=== PATIENT | male | born 1970 | race Caucasian/White ===

== ENCOUNTER 2020-07-30 07:25 | Outpatient (CLI) | payer BC, SELFPAY ==
--- NOTE | ~2020-07-30 | MR_ITS ---
EXAMINATION: MR brain/brain stem wo/w con DATE: 07/30/2020 09:42 INDICATION: Papilledema TECHNIQUE: Magnetic resonance imaging (MRI) of the brain and brainstem was performed without and with 20 cc MultiHance intravenous contrast. Sequences included sagittal and axial T1-weighted SE, axial d iffusion-weighted FS SE, axial T2*-weighted GRE, axial T2-weighted FLAIR Propeller, and axial T2-weig hted Propeller. Apparent diffusion coefficient (ADC) maps were created. COMPARISON: None. FINDINGS: Normal brain parenchymal volume. No acute intracranial hemorrhage or infarction. No ventric ulomegaly or midline shift. There are scattered mild periventricular and subcortical white matter danitza nges, most likely related to small vessel ischemic disease (microangiopathy). Midline sagittal images demonstrate a normal corpus callosum and craniovertebral junction. There is mild mucosal thickening of the paranasal sinuses. Orbits are symmetric without disconjugate gaze. No abnormal contrast enhanc ement. Structures of the posterior fossa including 7/8th cranial nerve complexes are normal IMPRESSION: 1. No acute intracranial abnormality. 2: Chronic age-related findings. Reviewed, dictated and finalized at location B.
--- NOTE | ~2020-07-30 | MR_ITS ---
EXAMINATION: MR orbits face neck wo/w con DATE: 07/30/2020 09:44 INDICATION: Papilledema. Lower left-sided vision loss. TECHNIQUE: Magnetic resonance imaging (MRI) of the orbits was performed without and with 20 mL MultiH ance intravenous contrast. Sequences of the orbits included coronal and axial T2-weighted FS FSE and T1-weighted FSE. Postcontrast sequences included axial and coronal T1-weighted FS FSE. COMPARISON: Brain MRI 07/30/2020 FINDINGS: There is mild mucosal thickening in the paranasal sinuses. The extraocular muscles and opti c nerves are normal. The ocular globes are normal. There is no abnormal orbital mass. IMPRESSION: 1. Normal orbits. Reviewed, dictated and finalized at location A. IMPRESSION: 1. Normal orbits.
[2020-07-30 08:31] LABS: Estimated Glomerular Filt Rate > 60
== END 2020-07-30 07:26 | disposition home or self-care (01) ==
PROVIDERS: PCP Family Medicine; Visit Provider Family Medicine
DX: H47.10 Unspecified papilledema (principal); H54.60 Unqualified visual loss, one eye, unspecified
CPT/HCPCS: 70543; 70553; A9577

== ENCOUNTER 2021-07-01 13:08 | Outpatient (CLI) | payer BC, SELFPAY ==
--- NOTE | ~2021-07-01 | XR_ITS ---
EXAM: XR cervical spine min 6V DATE: 07/01/2021 13:27 HISTORY: PAIN, NUMBNESS, TINGLING OF LEFT ARM-NO KNOWN INJURY . COMPARISON: None available. FINDINGS: Craniocervical association and atlantoaxial joint are normal. No prevertebral soft tissue swelling. Cervical spine straightening as can occur with positioning or spasm. Vertebral bodies are a ligned. Vertebral body heights are maintained. Mild disc space narrowing at C3-4. Mild bilateral C3-4 neural foraminal narrowing caused by uncovertebral joint hypertrophy. Normal facets and posterior el ements. IMPRESSION: Mild degenerative disc disease at C3-4. Mild bilateral C3-4 neural foraminal narrowing. Reviewed, dictated and finalized at location K.
== END 2021-07-01 13:09 | disposition home or self-care (01) ==
PROVIDERS: PCP Family Medicine; Visit Provider Family Medicine
DX: R20.2 Paresthesia of skin (principal); M50.320 Other cervical disc degeneration, mid-cervical region, unspecified level
CPT/HCPCS: 72052

== ENCOUNTER 2021-08-29 09:19 | Outpatient (CLI) | payer BC, SELFPAY ==
--- NOTE | 2021-08-29 11:30 | NEURO_ITS ---
Impression: # Complains of pain in upper extremities proximally, left more than right. # No Carpal Tunnel Syndrome or ulnar neuropathy. # Asymmetrical F-waves. # Needle/EMG exam revealed neurogenic changes in proximal muscles, left more than right, but no active neurogenic changes in proximal muscles. # Clinical correlation recommended; C-spine MRI recommended as well as brachial plexas. Nerve Conduction Studies Anti Sensory Summary Table Stim Site NR Peak (ms) P-T Amp (?V) Site1 Site2 Delta-P (ms) Dist (cm) Ramakrishna (m/s) Left Median Anti Sensory (2-3nd Digit) Wrist 2.5 60.8 Wrist 2-3nd Digit 2.5 14.0 56 Wrist 2.6 30.3 Wrist 2-3nd Digit 2.5 14.0 56 Right Median Anti Sensory (2-3nd Digit) Wrist 2.7 24.6 Wrist 2-3nd Digit 2.7 14.0 52 Wrist 2.6 39.4 Wrist 2-3nd Digit 2.7 14.0 52 Left Radial Anti Sensory (Base 1st Digit) Wrist 2.0 21.2 Wrist Base 1st Digit 2.0 0.0 Right Radial Anti Sensory (Base 1st Digit) Wrist 2.8 16.6 Wrist Base 1st Digit 2.8 0.0 Left Ulnar Anti Sensory (5th Digit) Wrist 2.8 42.9 Wrist 5th Digit 2.8 14.0 50 Right Ulnar Anti Sensory (5th Digit) Wrist 2.5 49.3 Wrist 5th Digit 2.5 14.0 56 Motor Summary Table Stim Site NR Onset (ms) O-P Amp (mV) Site1 Site2 Delta-0 (ms) Dist (cm) Ramakrishna (m/s) Left Median Motor (Abd Poll Brev) Wrist 3.1 3.2 Elbow Wrist 5.9 31.0 53 Elbow 9.0 2.3 Right Median Motor (Abd Poll Brev) Wrist 2.8 6.2 Elbow Wrist 5.4 31.0 57 Elbow 8.2 4.8 Left Ulnar Motor (Abd Dig Minimi) Wrist 2.0 5.2 A Elbow Wrist 5.4 31.0 57 A Elbow 7.4 4.4 Right Ulnar Motor (Abd Dig Minimi) Wrist 2.9 5.4 A Elbow Wrist 5.8 33.0 57 A Elbow 8.7 3.6 F Wave Studies NR F-Lat (ms) L-R F-Lat (ms) Left Median (Mrkrs) (Abd Poll Brev) 30.47 1.23 Right Median (Mrkrs) (Abd Poll Brev) 29.24 1.23 Left Ulnar (Mrkrs) (Abd Dig Min) 28.53 0.29 Right Ulnar (Mrkrs) (Abd Dig Min) 28.24 0.29 EMG Side Muscle Nerve Root Ins Act Fibs Amp Dur Recrt Comment Right 1stDorInt Ulnar C8-T1 Nml Nml Nml Nml Nml Right Ext Indicis Radial (Post Int) C7-8 Nml Nml Nml Nml Nml Right Ext Digitorum Radial (Post Int) C7-8 Nml Nml Nml Nml Nml Right BrachioRad Radial C5-6 Nml Nml Nml Nml Nml Right PronatorTeres Median C6-7 Nml Nml Nml Nml Nml Right Abd Poll Brev Median C8-T1 Nml Nml Nml Nml Nml Left 1stDorInt Ulnar C8-T1 Nml Nml Nml Nml Nml Left Ext Indicis Radial (Post Int) C7-8 Nml Nml Nml Nml Nml Left Ext Digitorum Radial (Post Int) C7-8 Nml Nml Nml Nml Nml Left BrachioRad Radial C5-6 Nml Nml Nml >12ms Reduced Left PronatorTeres Median C6-7 Nml Nml Nml Nml Nml Left Abd Poll Brev Median C8-T1 Nml Nml Nml Nml Nml Right Biceps Musculocut C5-6 Nml Nml Nml >12ms Reduced Right Triceps Radial C6-7-8 Nml Nml Nml Nml Nml Right Deltoid Axillary C5-6 Nml Nml Nml >12ms Reduced Left Biceps Musculocut C5-6 Nml Nml Nml >12ms Reduced Left Triceps Radial C6-7-8 Nml Nml Nml >12ms Reduced Left Deltoid Axillary C5-6 Nml Nml Nml >12ms Reduced MTDD
== END 2021-08-29 09:20 | disposition home or self-care (01) ==
LOC: ANHNEURO 09:20
PROVIDERS: PCP Family Medicine; Visit Provider Family Medicine
DX: R20.2 Paresthesia of skin (principal)
CPT/HCPCS: 95886; 95911

== ENCOUNTER 2021-09-10 07:07 | Outpatient (CLI) | payer BC, SELFPAY ==
--- NOTE | ~2021-09-10 | MR_ITS ---
EXAMINATION: MR cervical spine wo con DATE: 09/10/2021 07:45 INDICATION: Cervical radiculopathy. TECHNIQUE: Magnetic resonance imaging (MRI) of the cervical spine was performed without intravenous c ontrast. Sequences included sagittal T2-weighted FSE, sagittal T2-weighted FS FSE, sagittal T1-weight ed FSE, axial MERGE, and axial T2-weighted FSE. COMPARISON: Cervical spine radiographs 07/01/2021 FINDINGS: There is 8 degrees dextrocurvature of cervicothoracic spine. Vertebral body heights are nor mal. Intervertebral disc heights are normal. The spinal cord signal intensity is normal. The followin g disc levels are specifically discussed: C2-C3: The disc does not extend beyond the endplate margin. There is no uncovertebral joint osteoarth ritis. There is no facet joint osteoarthritis. There is no neural foraminal stenosis. There is no mary tral canal stenosis. C3-C4: The disc does not extend beyond the endplate margins. There is mild bilateral uncovertebral rena int osteoarthritis. There is mild bilateral facet joint osteoarthritis. There is no neural foraminal stenosis. There is no central canal stenosis. C4-C5: There is a central protrusion. There is mild right uncovertebral joint osteoarthritis. There i s no facet joint osteoarthritis. There is no neural foraminal stenosis. There is mild central canal s tenosis. C5-C6: There is a central protrusion. There is no uncovertebral joint osteoarthritis. There is no fac et joint osteoarthritis. There is no neural foraminal stenosis. There is no central canal stenosis. C6-C7: The disc does not extend beyond the endplate margin. There is mild left uncovertebral joint os teoarthritis. There is no facet joint osteoarthritis. There is no neural foraminal stenosis. There is no central canal stenosis. C7-T1: The disc does not extend beyond the endplate margin. There is no uncovertebral joint osteoarth ritis. There is mild bilateral facet joint osteoarthritis. There is no neural foraminal stenosis. The re is no central canal stenosis. IMPRESSION: 1. Mild cervical spondylosis. Reviewed, dictated and finalized at location A.
== END 2021-09-10 07:08 | disposition home or self-care (01) ==
PROVIDERS: PCP Family Medicine; Visit Provider Family Medicine
DX: M47.22 Other spondylosis with radiculopathy, cervical region (principal)
CPT/HCPCS: 72141

== ENCOUNTER 2021-10-01 12:57 | Outpatient (CLI) | payer BC, SELFPAY ==
--- NOTE | ~2021-10-01 | XR_ITS ---
EXAMINATION: XR shoulder LT min 2V INDICATION: Adhesive capsulitis of the left shoulder TECHNIQUE: Four views of the left shoulder are obtained on five radiographs. COMPARISON: None FINDINGS: Normal alignment. No fracture. There is mild osteoarthritis of the glenohumeral and acromio clavicular joints. Soft tissues are unremarkable. IMPRESSION: 1. Osteoarthritis without acute osseous abnormality. Reviewed, dictated and finalized at location B.
== END 2021-10-01 12:58 | disposition home or self-care (01) ==
PROVIDERS: PCP Family Medicine; Visit Provider Physical Medicine & Rehabilitation
DX: M75.02 Adhesive capsulitis of left shoulder (principal); M19.012 Primary osteoarthritis, left shoulder
CPT/HCPCS: 73030

== ENCOUNTER 2023-05-25 03:08 | Day surgery (SDC) | payer BC, SELFPAY ==
[2023-05-11 09:31] VITALS: BMI 30.8
[2023-05-25 09:37] VITALS: BP 122/79; PULSE 100; RESP 18; TEMP 36.2; O2SAT 98
--- NOTE | 2023-05-25 09:43 | WPDANESEPPF ---
Anes - Initial Pre Proc Eval Procedure: Operation Date: 05/25/23 10:30 Proposed Procedures p Screening Colonoscopy - Issac Cooper MD Date/Time: 05/25/23 09:43 Surgeon: Issac Cooper MD Pre Op Diagnosis: neoplasm screening Patient Data Age: 52 Gender: M Height: 1.88 m Weight: 107.3 kg Last Vital Signs Temp 97.1 F L 05/25/23 09:37 Pulse 100 05/25/23 09:37 Resp 18 05/25/23 09:37 BP 122/79 05/25/23 09:37 Pulse Ox 98 05/25/23 09:37 O2 Del Method Room Air 05/25/23 09:37 Allergies Allergy/AdvReac Type Severity Reaction Status Date / Time No Known Allergies Allergy Verified 05/25/23 09:34 Home Medications Medication Instructions Recorded Confirmed Type rosuvastatin 10 mg tablet 10 mg PO DAILY #90 tabs 03/16/23 05/25/23 Rx metformin 1,000 mg tablet 1,000 mg PO BID #180 tabs 05/04/23 05/25/23 Rx empagliflozin 25 mg tablet 25 mg PO DAILY #90 tabs 05/11/23 05/25/23 Rx (Jardiance) glimepiride 1 mg tablet See Rx Instructions .Route 05/11/23 05/25/23 Rx .COMPLEX #90 tabs Patient hx anesthesia problems: none Family hx anesthesia problems: none Results Review: All pre-operative results and documents have been reviewed as part of the pre-operative evaluation. [facility] Past Medical History Medical History Hyperlipidemia, unspecified NAION (non-arteritic anterior ischemic optic neuropathy), left eye Papilledema Type 2 diabetes mellitus with moderate nonproliferative diabetic retinopathy without macular edema, bilateral Unilateral visual loss Social History Social History (Updated 03/16/23 @ 11:15 by Rekha Lay MA) Smoking status: Never smoker Second hand tobacco smoke exposure: No Alcohol intake: unknown Substance use: never Substance use type: does not use Do You Feel Safe in your Home?: Yes Lack of Transportation: No Lack of Food: Never True Current Housing: I Have Housing Concerned About Future Housing: No Difficulty Paying Gas/Electric Bills: No Difficulty Paying for Meds: No Currently Unemployed: No Education: High School Diploma/GED Difficulty w/ Childcare or Family Care: No Living arrangements: alone Occupation/Education: occupation Gender identity (if verbalized by the patient): Male Sexual Orientation (if Verbalized by the Patient): Straight or Heterosexual Spiritual care concerns: No Anes - Eval Final PreProcedure Day of Procedure 05/25/23 09:43 Patient weight: obese Heart: regular rate and rhythm Lungs: clear to auscultation Airway: Mallampati scale class II Neurological: alert and oriented Last oral intake: >/= 8 hours ASA classification: II Emergent: no Anesthetic plan: proceed Anesthesia type and monitoring: general GIVS and standard monitoring Results Review: All pre-operative results and documents have been reviewed as part of the pre-operative evaluation. Informed Consent: The patient's anesthetic plan and its attendant risks and benefits were discussed with the patient/family/POA. Questions were solicited and answers provided to the satisfaction of the patient/family/POA.
[2023-05-25] MEDS: LACTATED RINGERS 1,000 ML 150 ML IV CONT (09:52)
[2023-05-25 09:54] LABS: Glucose Point of Care 167 mg/dl (65-105)
--- NOTE | 2023-05-25 10:22 | PM.HPGS ---
History of Present Illness History of Present Illness Consent: Risks, benefits, and alternatives have been discussed and questions answered. Patient agrees to proceed with procedure. Chief complaint: neoplasm screening Narrative: Sanchez Oconnell is a 52 year old male here for first screening colonoscopy Review of Systems Review of Systems: All systems reviewed & are unremarkable except as noted in HPI and below PMFSH Past Medical History Medical History (Updated 05/25/23 @ 10:22 by Issac Cooper MD) Colon cancer screening Hyperlipidemia, unspecified NAION (non-arteritic anterior ischemic optic neuropathy), left eye Papilledema Type 2 diabetes mellitus with moderate nonproliferative diabetic retinopathy without macular edema, bilateral Unilateral visual loss Social History Social History (Updated 03/16/23 @ 11:15 by Rekha Lay MA) Smoking status: Never smoker Second hand tobacco smoke exposure: No Alcohol intake: unknown Substance use: never Substance use type: does not use Do You Feel Safe in your Home?: Yes Lack of Transportation: No Lack of Food: Never True Current Housing: I Have Housing Concerned About Future Housing: No Difficulty Paying Gas/Electric Bills: No Difficulty Paying for Meds: No Currently Unemployed: No Education: High School Diploma/GED Difficulty w/ Childcare or Family Care: No Living arrangements: alone Occupation/Education: occupation Gender identity (if verbalized by the patient): Male Sexual Orientation (if Verbalized by the Patient): Straight or Heterosexual Spiritual care concerns: No Meds Home Medications and Allergies Home Medications Medication Instructions Recorded Confirmed Type rosuvastatin 10 mg tablet 10 mg PO DAILY #90 tabs 03/16/23 05/25/23 Rx metformin 1,000 mg tablet 1,000 mg PO BID #180 tabs 05/04/23 05/25/23 Rx empagliflozin 25 mg tablet 25 mg PO DAILY #90 tabs 05/11/23 05/25/23 Rx (Jardiance) glimepiride 1 mg tablet See Rx Instructions .Route 05/11/23 05/25/23 Rx .COMPLEX #90 tabs Allergies Allergy/AdvReac Type Severity Reaction Status Date / Time No Known Allergies Allergy Verified 05/25/23 09:34 Vital Signs Vital Signs - 24 hr 05/25/23 09:37 Temperature 97.1 F L Pulse Rate 100 Respiratory Rate 18 Blood Pressure 122/79 Pulse Oximetry 98 Oxygen Delivery Room Air Exam Const: General: comfortable and no acute distress HENMT: Face/Nose/Sinus: Normal nares present Eyes: General: appearance normal, both eyes and all related structures Neck: Neck: no JVD Resp: Auscultation: clear to auscultation bilaterally Cardio: Rate: regular rate Rhythm: regular rhythm GI: Inspection: non-distended GI Palp: Yes Soft to palpation Skin: General skin exam: normal color Neuro: General: gait normal Speech: normal speech Extrem: General: normal to inspection Psych: Mental Status: mental status grossly normal Assessment and Plan Assessment and plan (1) Colon cancer screening: Code(s): Z12.11 - Encounter for screening for malignant neoplasm of colon Status: Acute Assessment and Plan: colonoscopy
[2023-05-25 10:45] VITALS: BP 98/60; PULSE 100; RESP 19; O2SAT 97
[2023-05-25 10:55] VITALS: BP 102/65; PULSE 97; RESP 19; O2SAT 97
[2023-05-25 11:05] VITALS: BP 102/65; PULSE 90; RESP 18; O2SAT 98
== END 2023-05-25 11:08 | disposition home or self-care (01) ==
PROVIDERS: PCP Family Medicine; Visit Provider Internal Medicine Gastroenterology
PROC: 0DJD8ZZ Inspection of Lower Intestinal Tract, Via Natural or Artificial Opening Endoscopic (ICD-10-PCS; CPT 45378; principal; 2023-05-25 10:30)
DX: Z12.11 Encounter for screening for malignant neoplasm of colon (principal); D12.3 Benign neoplasm of transverse colon; D12.5 Benign neoplasm of sigmoid colon; D12.4 Benign neoplasm of descending colon; K64.8 Other hemorrhoids; K57.30 Diverticulosis of large intestine without perforation or abscess without bleeding; E78.5 Hyperlipidemia, unspecified; E11.3313 Type 2 diabetes mellitus with moderate nonproliferative diabetic retinopathy with macular edema, bilateral; E66.9 Obesity, unspecified; Z68.30 Body mass index [BMI] 30.0-30.9, adult; Z79.84 Long term (current) use of oral hypoglycemic drugs
CPT/HCPCS: 45385; 82948; 88305; J2704; J7120

== ENCOUNTER 2023-10-27 12:17 | Emergency (ER) | payer BC, SELFPAY ==
[2023-10-27 12:29] VITALS: BP 141/79; PULSE 95; RESP 16; TEMP 36.7; O2SAT 99
--- NOTE | 2023-10-27 12:31 | ED.DIZZY ---
HPI - Dizziness General Chief Complaint: Dizziness Stated Complaint: Dizziness Time Seen by Provider: 10/27/23 12:35 Source: patient Mode of arrival: ambulatory Limitations: no limitations History of Present Illness HPI Narrative: Sanchez is a 52-year-old male patient presenting to the clinic today with complaints of dizziness, headache, and nausea since yesterday afternoon. He reports that he stood up after eating lunch yesterday and felt dizzy-off balance/unsteady steady on his feet. States that the dizziness seems to be worse with movement of his head and when changing positions. History of diabetes. Related Data Allergies Allergy/AdvReac Type Severity Reaction Status Date / Time No Known Allergies Allergy Verified 10/27/23 12:23 Review of Systems Review of Systems: Pertinent positives per HPI. Patient denies any fever, chills, rash, visual changes, cough, runny nose, sore throat, shortness of breath, chest pain, palpitations, vomiting, diarrhea, constipation, abdominal pain, or any urinary issues. PMFSH Past Medical History Medical History (Updated 10/27/23 @ 13:43 by Jose F Miguel APRN) Colon cancer screening Hyperlipidemia, unspecified NAION (non-arteritic anterior ischemic optic neuropathy), left eye Papilledema Type 2 diabetes mellitus with moderate nonproliferative diabetic retinopathy without macular edema, bilateral Unilateral visual loss Social History Social History Smoking status: Never smoker Second hand tobacco smoke exposure: No Alcohol intake: unknown Substance use: never Substance use type: does not use Do You Feel Safe in your Home?: Yes Lack of Transportation: No Lack of Food: Never True Current Housing: I Have Housing Concerned About Future Housing: No Difficulty Paying Gas/Electric Bills: No Difficulty Paying for Meds: No Currently Unemployed: No Education: High School Diploma/GED Difficulty w/ Childcare or Family Care: No Living arrangements: alone Occupation/Education: occupation Gender identity (if verbalized by the patient): Male Sexual Orientation (if Verbalized by the Patient): Straight or Heterosexual Spiritual care concerns: No Comments At the time of my signature, I reviewed and agree with the nursing past medical, surgical, social, and family history. There is no relevant family history pertinent to the patient complaint. Exam Narrative: General: Well-developed, well nourished, in no apparent distress Head: Normocephalic, atraumatic Eyes: Pupils equally round and reactive to light bilaterally, EOM intact, sclera and conjunctive clear, no discharge, lids normal Ears: TMs intact and clear, ear canals clear, no drainage, grossly hearing normal. Nose: Nares patent, no discharge, no inflammation, no sinus tenderness. Mouth: Oropharynx without lesions or masses, good dentition, MMM. Tongue midline, even rise and fall of uvula Neck: Supple, trachea midline, no enlargement of anterior or posterior cervical nodes, no thyroid masses or goiter palpable. Cardio: Regular rate and rhythm, s1 and s2 normal, no murmur appreciated. Resp: Clear to auscultation bilaterally anteriorly and posteriorly, no rhonchi, rales, wheezing or rubs Musculoskeletal: No deformity, non-tender to palpation, grossly normal range of motion, muscle strength strong and equal, peripheral pulse strong, no edema, no cyanosis, normal gait and station Neuro: Alert and oriented x4 with normal speech, no focal deficits, cranial nerves I through XII intact, muscle strength 5 out of 5, sensation intact bilaterally, mild swaying with Romberg testing Course Course Emergency Course: Portions of this record may have been created with voice recognition software. Level of Care: Express Care Visit Vital Signs Vital signs: Vital Signs Temperature 36.7 C 10/27/23 12:29 Pulse Rate 95 10/27/23 12:29 Re
--- NOTE | 2023-10-27 12:44 | ECG_ITS ---
Test Date: 2023-10-27 12:57:14 Measurements Intervals [place] Rate: 88 P: 57 CO: 156 QRS: 53 QRSD: 86 T: 47 QT: 349 QTc: 424 Interpretive Statements SINUS RHYTHM NORMAL ECG No previous ECG available for comparison Electronically Signed On 10-27-2023 12:57:49 CDT by Huan López D.O.
[2023-10-27 12:46] LABS: Glucose Point of Care 211 mg/dl (65-105)
[2023-10-27 12:53] LABS: EDUAAPPEAR Clear; EDUABILI 1+ (Negative); EDUABLOOD Negative (Negative); EDUACOLOR1 Yellow; EDUAGLUCOSE 2+ (Negative); EDUAKETONE 3+ (Negative); EDUALEUKO Negative (Negative); EDUANITRATE Negative (Negative); EDUAPROTEIN 1+ (Negative); EDUAUROBILI 0.2
[2023-10-27 12:56] VITALS: BP 140/78; PULSE 86
[2023-10-27 12:57] VITALS: BP 123/77; PULSE 112
[2023-10-27 13:00] VITALS: BP 127/78; PULSE 102
== END 2023-10-27 13:22 | disposition short-term general hospital (02) ==
PROVIDERS: Emergency Provider Nurse Practitioner Family; PCP Family Medicine
DX: R42 Dizziness and giddiness (principal); R51.9 Headache, unspecified; R11.0 Nausea; R82.4 Acetonuria; R80.9 Proteinuria, unspecified; R81 Glycosuria; I95.1 Orthostatic hypotension; E78.5 Hyperlipidemia, unspecified; E11.3393 Type 2 diabetes mellitus with moderate nonproliferative diabetic retinopathy without macular edema, bilateral
CPT/HCPCS: 81003; 82948; 93005; 99213; G0463

== ENCOUNTER 2023-10-27 13:50 | Emergency (ER) | payer BC, SELFPAY ==
--- NOTE | ~2023-10-27 | CT_ITS ---
EXAMINATION: CT brain wo con DATE: 10/27/2023 14:34 INDICATION: Dizziness. Headache. TECHNIQUE: Computed tomography (CT) of the head was performed without intravenous contrast. The mA wa s adjusted according to patient size. Iterative reconstruction technique was employed. The dose-lengt h product was 681.00 mGy-cm. COMPARISON: Brain MRI 07/30/2020 FINDINGS: There is no intracranial hemorrhage, acute infarction, or abnormal intracranial mass lesion . The ventricles are normal in size. There is mucosal thickening in the paranasal sinuses. The orbits are normal. The mastoid air cells are normal. IMPRESSION: 1. Normal brain. Reviewed, dictated and finalized at location A. IMPRESSION: 1. Normal brain.
--- NOTE | ~2023-10-27 | XR_ITS ---
EXAMINATION: XR chest 2V DATE: 10/27/2023 14:38 INDICATION: Dizziness with nausea and headache TECHNIQUE: PA and lateral views of the chest were obtained. COMPARISON: None FINDINGS: The lungs are clear with no focal airspace opacities, pulmonary edema, pleural effusion or pneumothor ax. The cardiomediastinal silhouette is normal. Mild thoracic spondylosis. IMPRESSION: 1. No acute cardiopulmonary disease. Reviewed, dictated and finalized at location B.
[2023-10-27 13:51] VITALS: BP 138/86; PULSE 98; RESP 20; TEMP 36.4; O2SAT 98
[2023-10-27 13:58] LABS: Glucose Point of Care 196 mg/dl (65-105)
--- NOTE | 2023-10-27 14:08 | ED.DIZZY ---
HPI - Dizziness General Chief Complaint: Dizziness Stated Complaint: dizzeness Time Seen by Provider: 10/27/23 14:06 Source: patient Mode of arrival: ambulatory Limitations: no limitations History of Present Illness HPI Narrative: this is a 52-year-old male with PMH of T2 dm who presents to the ED for chief complaint of Dizziness over the past couple of days. Reports it is specifically worse when standing up from seated position. Vitals are normal. Exam is benign overall. No focal neurologic deficit. CT brain non con is without acute findings. Chest x-ray is normal. Lab work shows normal CBC overall. CMP does show elevated glucose of 190 and slightly low bicarb was slightly elevated anion gap. VBG use ordered to rule out a glycemic DKA and the pH is normal. Patient was given fluids and meclizine. largely asymptomatic at this point. Low suspicion for central cause of vertigo. Much more consistent with a peripheral vertigo or orthostatic hypotension. He was able to ambulate about the department without assistance. Pt will be discharged in stable condition. Return precautions given and supportive measures discussed. Pt is understanding and agreeable with plan for discharge and follow-up with PCP. Related Data Allergies Allergy/AdvReac Type Severity Reaction Status Date / Time No Known Allergies Allergy Verified 10/27/23 12:23 [facility] Past Medical History Medical History (Updated 10/27/23 @ 16:49 by Carlos Ruby PA-C) Colon cancer screening Hyperlipidemia, unspecified NAION (non-arteritic anterior ischemic optic neuropathy), left eye Papilledema Type 2 diabetes mellitus with moderate nonproliferative diabetic retinopathy without macular edema, bilateral Unilateral visual loss Social History Social History Smoking status: Never smoker Second hand tobacco smoke exposure: No Alcohol intake: unknown Substance use: never Substance use type: does not use Do You Feel Safe in your Home?: Yes Lack of Transportation: No Lack of Food: Never True Current Housing: I Have Housing Concerned About Future Housing: No Difficulty Paying Gas/Electric Bills: No Difficulty Paying for Meds: No Currently Unemployed: No Education: High School Diploma/GED Difficulty w/ Childcare or Family Care: No Living arrangements: alone Occupation/Education: occupation Gender identity (if verbalized by the patient): Male Sexual Orientation (if Verbalized by the Patient): Straight or Heterosexual Spiritual care concerns: No Course Vital Signs Vital signs: Vital Signs Temperature 97.5 F L 10/27/23 13:51 Pulse Rate 98 10/27/23 13:51 Respiratory Rate 20 10/27/23 13:51 Blood Pressure 138/86 10/27/23 13:51 Pulse Oximetry 98 10/27/23 13:51 Oxygen Delivery Room Air 10/27/23 13:51 Temperature 97.5 F L 10/27/23 13:51 Pulse Rate 95 10/27/23 17:22 Respiratory Rate 16 10/27/23 17:22 Blood Pressure 116/65 10/27/23 17:22 Pulse Oximetry 99 10/27/23 17:22 Oxygen Delivery Room Air 10/27/23 13:51 MDM - Dizziness Lab Data 10/27/23 14:22 10/27/23 14:22 Labs: Lab Results 10/27/23 10/27/23 Range/Units 13:55 14:22 WBC 11.5 H (4.5-10.0) K/mm3 RBC 5.62 (4.6-6.20) M/mm3 Hgb 16.4 (14.0-18.0) g/dL Hct 50.1 (42.0-52.0) % MCV 89.1 (80-100) fl MCH 29.2 (26-34) pg MCHC 32.7 (32-36) g/dl RDW 12.3 (11.5-14.5) % Plt Count 338 (150-375) k/mm3 MPV 10.0 (7.4-10.4) fl Immature Gran % (Auto) 1.0 H (0-0.5) % Neut % (Auto) 76.1 H (45.5-73.1) % Lymph % (Auto) 17.5 L (18.3-44.2) % [place] % (Auto) 4.2 (2.6-8.5) % Eos % (Auto) 0.4 (0-4.4) % Baso % (Auto) 0.8 (0.2-1.2) % Lymph # (Auto) 2.01 (0.9-3.2) K/mm3 [place] # (Auto) 0.5 (0.1-0.6) K/mm3 Eos # (Auto) 0.1 (0-0.3) K/mm3 Baso # (Auto) 0.1 (0.0-0.1) K/mm3 Abs Immat Gran
--- NOTE | 2023-10-27 14:09 | ECG_ITS ---
Test Date: 2023-10-27 14:13:13 Measurements Intervals [place] Rate: 94 P: 50 RI: 157 QRS: 38 QRSD: 77 T: 33 QT: 339 QTc: 425 Interpretive Statements SINUS RHYTHM EARLY PRECORDIAL R/S TRANSITION BASELINE ARTIFACT- I, III, AVL BORDERLINE ECG Compared to ECG 10/27/2023 12:57:14 No significant changes Electronically Signed On 10-27-2023 14:15:27 CDT by Huan López D.O.
[2023-10-27 14:16] VITALS: BP 130/92; BP 134/81; PULSE 89; PULSE 95
[2023-10-27 14:17] VITALS: BP 127/89; PULSE 110
[2023-10-27 14:20] VITALS: PULSE 94
[2023-10-27 14:28] LABS: Basophils Absolute Auto 0.1 K/mm3 (0.0-0.1); Basophils Percent Auto 0.8 % (0.2-1.2); Eosinophils Absolute Auto 0.1 K/mm3 (0-0.3); Eosinophils Percent Auto 0.4 % (0-4.4); Hematocrit 50.1 % (42.0-52.0); Hemoglobin 16.4 g/dL (14.0-18.0); Immature Granulocyte Absolute 0.11 K/mm3 (0.00-0.031); Lymphocytes Absolute Auto 2.01 K/mm3 (0.9-3.2); Lymphocytes Percent Auto 17.5 % (18.3-44.2); Mean Corpuscular HGB Conc 32.7 g/dl (32-36); Mean Corpuscular Hemoglobin 29.2 pg (26-34); Mean Corpuscular Volume 89.1 fl (80-100); Monocytes Absolute Auto 0.5 K/mm3 (0.1-0.6); Monocytes Percent Auto 4.2 % (2.6-8.5); Neutrophils Absolute Auto 8.7 K/mm3 (1.3-6.7); Neutrophils Percent Auto 76.1 % (45.5-73.1); Platelet Count Result 338 k/mm3 (150-375); Red Blood Count 5.62 M/mm3 (4.6-6.20); Red Cell Distribution Width 12.3 % (11.5-14.5); White Blood Count 11.5 K/mm3 (4.5-10.0)
[2023-10-27 14:43] LABS: Alanine Aminotransferase 24 U/L (6-50); Alkaline Phosphatase 68 U/L (38-126); Anion Gap 18 mmol/L (4-12); Aspartate Amino Transferase 24 U/L (17-59); Bilirubin,Total 1.1 mg/dL (0.2-1.3); Blood Urea Nitrogen 13 mg/dL (9-20); Carbon Dioxide 19 mmol/L (22-30); Chloride 101 mmol/L (98-107); Estimated CRCL calculation 139 ml/min; Estimated Glomerular Filt Rate > 60; Glucose 190 mg/dL (65-110); Potassium 4.2 mmol/L (3.4-5.0); Sodium 138 mmol/L (137-145)
[2023-10-27 14:59] LABS: Fractional Inspired Oxygen 21 %; HCO3 VBG 21.6 mEq/l (24.0-30.0); PCO2 VBG 34.9 mmHg (42.0-48.0); PO2 VBG 46.3 mmHg (35.0-45.0)
[2023-10-27 15:01] LABS: pH VBG 7.409 (7.300-7.400)
[2023-10-27] MEDS: SODIUM CHLORIDE 0.9% IV 1,000 ML 999 ML IV CONT ×2 (15:03)
[2023-10-27] MEDS: diphenhydrAMINE HCl INJ 50 MG/ML VIAL 25 MG IV PUSH (15:03)
[2023-10-27] MEDS: MECLIZINE HCL 25 MG TABLET PO (15:03)
[2023-10-27 15:04] VITALS: BP 126/72; PULSE 97; RESP 16; O2SAT 98
[2023-10-27 17:22] VITALS: BP 116/65; PULSE 95; RESP 16; O2SAT 99
== END 2023-10-27 17:29 | disposition home or self-care (01) ==
PROVIDERS: Emergency Provider Physician Assistant; PCP Family Medicine
DX: R42 Dizziness and giddiness (principal); E78.5 Hyperlipidemia, unspecified; E11.3393 Type 2 diabetes mellitus with moderate nonproliferative diabetic retinopathy without macular edema, bilateral; Z79.84 Long term (current) use of oral hypoglycemic drugs
CPT/HCPCS: 36415; 70450; 71046; 80053; 81003; 82803; 82948; 85025; 93005; 96361; 96374; 99284; A9270; J1200; J7030

== ENCOUNTER 2024-12-06 13:32 | Outpatient (CLI) | payer BC, SELFPAY ==
--- NOTE | 2024-12-06 13:46 | ECG_ITS ---
Test Date: 2024-12-06 13:53:01 Measurements Intervals Minto Rate: 90 P: 50 WV: 170 QRS: 40 QRSD: 85 T: 47 QT: 345 QTc: 424 Interpretive Statements SINUS RHYTHM EARLY PRECORDIAL R/S TRANSITION BORDERLINE ECG Compared to ECG 10/27/2023 14:13:13 No significant changes Electronically Signed On 12-06-2024 13:56:52 CDT by Huan López D.O.
[2024-12-06 14:35] LABS: Hematocrit 45.7 % (42.0-52.0); Hemoglobin 15.4 g/dL (14.0-18.0); Immature Granulocyte Percent A 1.1 % (0-0.5); Lymphocytes Absolute Auto 2.16 K/mm3 (0.9-3.2); Mean Corpuscular HGB Conc 33.7 g/dl (32-36); Mean Corpuscular Hemoglobin 29.6 pg (26-34); Mean Corpuscular Volume 87.9 fl (80-100); Nucleated Red Blood Cells Absolute Auto 0.000 K/mm3 (0.0-0.012); Nucleated Red Blood Cells Perc 0.0 % (0.0-0.2); Platelet Count Result 303 k/mm3 (150-375); Red Blood Count 5.20 M/mm3 (4.6-6.20); White Blood Count 8.2 K/mm3 (4.5-10.0)
[2024-12-06 14:54] LABS: Anion Gap 9 mmol/L (4-12); Blood Urea Nitrogen 14 mg/dL (9-20); Calcium 8.8 mg/dL (8.4-10.2); Carbon Dioxide 24 mmol/L (22-30); Chloride 104 mmol/L (98-107); Estimated Glomerular Filt Rate > 60; Glucose 272 mg/dL (65-110); Potassium 3.9 mmol/L (3.4-5.0); Sodium 137 mmol/L (137-145)
== END 2024-12-06 13:33 | disposition home or self-care (01) ==
LOC: ANHLAB 13:35
PROVIDERS: PCP Family Medicine; Referring Provider Anesthesiology; Visit Provider Surgery
DX: K42.9 Umbilical hernia without obstruction or gangrene (principal); E11.9 Type 2 diabetes mellitus without complications; Z01.818 Encounter for other preprocedural examination
CPT/HCPCS: 36415; 80048; 85025; 86850; 86900; 86901; 93005

== ENCOUNTER 2024-12-14 00:11 | Day surgery (SDC) | payer BC, SELFPAY ==
--- NOTE | 2024-12-05 14:07 | SUR.PREOP ---
[facility] has started construction of its new state of the art ER which will open Spring 2026. With this, we anticipate parking may be a challenge for some our surgical patients and families. Parking spaces are limited but are available for all Surgical, obstetrics, and ER patients sharing this lot. If you arrive and find you are having a hard time finding a parking space, please note that we understand the challenges, please drive around the hospital and park near Hospital Entrance 1. When you enter this entrance, you can ask a volunteer to direct or take you back to the surgical waiting area to check in. We appreciate everyone?s understanding of these expected challenges while we build for your future. Report to the Outpatient Waiting Room, entrance under the green pavilion located off [address], at time _9AM__ on date _12/14/24__. Planned Procedure Time: _11AM__.? Time changes happen often and if your time is changed the preop area will call you the afternoon before. - You and your visitor will be asked to self-screen and do not enter if you have any COVID symptoms. Please call surgeon if you need to reschedule. - A mask is optional within the hospital at this time. Patients may have clear liquids (water, carbonated beverages, clear teas, apple juice) until 3 hours prior to surgery with a maximum of 20 ounces. - No food from midnight until time of surgery and no smoking, or chewing tobacco (or any form of nicotine). No chewing gum, candy or mints. Take only the following medications with a SIP of water on the morning of surgery: _None___ DO NOT STOP ANY OF YOUR OTHER PRESCRIPTION MEDICATIONS PRIOR TO SURGERY EXCEPT THE FOLLOWING Hold all vitamins and supplements for 3 days per anesthesiologist. Medications to hold per physician _Lc for 10 days prior___ Date to take last dose__n/a__ Please no make-up, nail cymraes, hairspray, perfume, deodorant, or body powder the day of surgery.? No jewelry (including any body piercings) or valuables the day of surgery, leave them at home.? Please take a shower or bath the night before, or the morning of, surgery with an antibacterial soap.? Wear comfortable, loose fitting clothing.? - Jewelry must be removed prior to entering the operating room.? Rings and piercings that are not removed may be cut off. - The hospital will not accept responsibility for valuables.? - Please leave all valuables, including medications, at home the day of surgery. If you are going home after surgery, a licensed driver trainer must drive you home.? - NO public transportation without another adult if you receive anesthesia. - We recommend that an adult stay with you for 24 hours following discharge. - We also recommend that you do not drive, make important decision, drink alcoholic beverages, or take any drugs that were not prescribed by your health care provider for at least 24 hours after your discharge time.. Follow any additional instructions given to you from your surgeon. Telephone instructions given to __Jeff__and asked if any additional questions and then verbalized understanding. Patient advised to call surgeon office or pre surgery nurse liaison [phone] if any additional questions.
[2024-12-05 14:17] VITALS: BMI 28.9
--- NOTE | 2024-12-05 14:48 | SUR.PREOP ---
[facility] has started construction of its new state of the art ER which will open Spring 2026. With this, we anticipate parking may be a challenge for some our surgical patients and families. Parking spaces are limited but are available for all Surgical, obstetrics, and ER patients sharing this lot. If you arrive and find you are having a hard time finding a parking space, please note that we understand the challenges, please drive around the hospital and park near Hospital Entrance 1. When you enter this entrance, you can ask a volunteer to direct or take you back to the surgical waiting area to check in. We appreciate everyone?s understanding of these expected challenges while we build for your future. Report to the Outpatient Waiting Room, entrance under the green pavilion located off [address], at time _9AM__ on date _12/14/24__. Planned Procedure Time: _11AM__.? Time changes happen often and if your time is changed the preop area will call you the afternoon before. - You and your visitor will be asked to self-screen and do not enter if you have any COVID symptoms. Please call surgeon if you need to reschedule. - A mask is optional within the hospital at this time. Patients may have clear liquids (water, carbonated beverages, clear teas, apple juice) until 3 hours prior to surgery with a maximum of 20 ounces. - No food from midnight until time of surgery and no smoking, or chewing tobacco (or any form of nicotine). No chewing gum, candy or mints. Take only the following medications with a SIP of water on the morning of surgery: _None___ DO NOT STOP ANY OF YOUR OTHER PRESCRIPTION MEDICATIONS PRIOR TO SURGERY EXCEPT THE FOLLOWING Hold all vitamins and supplements for 3 days per anesthesiologist. Medications to hold per physician _None___ Date to take last dose__n/a__ Please no make-up, nail faroese, hairspray, perfume, deodorant, or body powder the day of surgery.? No jewelry (including any body piercings) or valuables the day of surgery, leave them at home.? Please take a shower or bath the night before, or the morning of, surgery with an antibacterial soap.? Wear comfortable, loose fitting clothing.? - Jewelry must be removed prior to entering the operating room.? Rings and piercings that are not removed may be cut off. - The hospital will not accept responsibility for valuables.? - Please leave all valuables, including medications, at home the day of surgery. If you are going home after surgery, a licensed hire car driver must drive you home.? - NO public transportation without another adult if you receive anesthesia. - We recommend that an adult stay with you for 24 hours following discharge. - We also recommend that you do not drive, make important decision, drink alcoholic beverages, or take any drugs that were not prescribed by your health care provider for at least 24 hours after your discharge time.. Follow any additional instructions given to you from your surgeon. Telephone instructions given to __Jeff__and asked if any additional questions and then verbalized understanding. Patient advised to call surgeon office or pre surgery nurse liaison [phone] if any additional questions.
--- NOTE | 2024-12-13 13:53 | PM.SD2 ---
Same Day Admit/Disch: HPI History of Present Illness Chief complaint: umbilical hernia 2.5cm Narrative: Sanchez Oconnell is a 53 year old male who has had a small umbilical hernia for at least 2 years. It has lately been getting larger and occasionally painful. He lost over 70 lb of weight and the hernia is now not only symptomatic, but much more noticeable. He was seen in the office and found to have an umbilical hernia that was reducible and had a 2.5 cm defect. He is taken to surgery at this time for robotic laparoscopic repair with mesh. 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, bilateral Hyperlipidemia, unspecified Papilledema Family History Family History Mother Breast cancer Father Skin cancer Social History Social History Smoking status: Never smoker Second hand tobacco smoke exposure: No Alcohol intake: unknown Substance use: never Substance use type: does not use Do You Feel Safe in your Home?: Yes Lack of Transportation: No Lack of Food: Never True Current Housing: I Have Housing Concerned About Future Housing: No Difficulty Paying Gas/Electric Bills: No Difficulty Paying for Meds: No Currently Unemployed: No Education: High School Diploma/GED Difficulty w/ Childcare or Family Care: No Living arrangements: alone Occupation/Education: occupation Gender identity (if verbalized by the patient): Male Sexual Orientation (if Verbalized by the Patient): Straight or Heterosexual Spiritual care concerns: No Same Day Admit/Disch: Med Pre-admit Medications Home Medications ?Medication ?Instructions ?Recorded ?Confirmed ?Type empagliflozin 25 mg tablet 25 mg PO DAILY #90 tabs 08/02/24 12/14/24 Rx (Jardiance) rosuvastatin 10 mg tablet 10 mg PO DAILY #90 tabs 10/26/24 12/05/24 Rx Mounjaro 15 mg/0.5 mL subcutaneous 15 mg (0.5 mL) subcut WEEKLY #2 mL 11/11/24 12/14/24 Rx pen injector (tirzepatide) ketorolac 10 mg tablet 10 mg PO Q6H 4 days #16 tabs 12/14/24 Rx oxycodone-acetaminophen 5 mg-325 0.5 - 1 tablet PO Q4H PRN pain #14 12/14/24 Rx mg tablet (Percocet) tabs Review of Systems Review of Systems All systems reviewed & are unremarkable except as noted in HPI and below (HPI) Exam Const: General: comfortable, no acute distress, alert and awake HENMT: Head: normocephalic and atraumatic Mouth: Yes Normal oral and palatal mucosa present Neck: Neck: normal visual inspection, no lymphadenopathy and nontender Resp: Effort & Inspection: normal respiratory effort Auscultation: clear to auscultation bilaterally Cardio: Rate: regular rate Rhythm: regular rhythm Heart sounds: no gallops, no murmurs and no rubs GI: Inspection: non-distended, scaphoid and visible herniation (Umbilical with dusky overlying skin) GI Palp: Yes Soft to palpation, No Tenderness to palpation present (GI), No Hepatomegaly present, No Splenomegaly present and Yes Hernia present umbilical < 3 cm (Reducible) Skin: Lesions: no lesions Rashes: no rashes Neuro: General: no focal motor deficits and CN's II-XI intact bilaterally Cranial nerves: Yes Equal, round and reactive pupils present, Yes Bilaterally intact EOM present, Yes facial symmetry and Yes Midline tongue present Speech: normal speech Motor exam (neuro): 5/5 motor strength present throughout and Motor abnormalities not present Extrem: General: no clubbing, cyanosis or edema and edema Psych: Affect: normal affect Thought process: Normal thought process present Insight: Good insight present (Psych) DS: Summary Time Spent with Patient Time attestation: Total time spent providing and/or coordinating discharge services: DS: Admitting Diagnosis Discharge Date 12/14/2024 Admitting Diagnosis Reducible, symptomatic, umbilical hernia with 2.5 cm defect-plan to proceed with robotic laparoscopic repair with mesh. The procedure, recovery, alternatives, risks, and benefits have been discussed. The use of mesh has been discussed. All questions were answered. Patient wishes to go ahead. Non-insulin dependent diabetes Unilateral visual loss-left eye DS: Discharge Diagnosis Discharge Diagnosis (1) Umbilical hernia: Qualifiers: Obstruction and gangrene presence: without obstruction or gangrene Qualified Code(s): K42.9 - Umbilical hernia without obstruction or gangrene Code(s): K42.9 - Umbilical hernia without obstruction or gangrene Status: Chronic Assessment and Plan: Robotic laparoscopic repair with mesh per Dr. Headley on 12/14/2024 (2) Type 2 diabetes mellitus with moderate nonproliferative diabetic retinopathy without macular edema, bilateral: Qualifiers: Diabetes mellitus mcc insulin use: without watermelon harvesting supervisor use Qualified Code(s): E11.3393 - Type 2 diabetes mellitus with moderate nonproliferative diabetic retinopathy without macular edema, bilateral Code(s): E11.3393 - Type 2 diabetes mellitus with moderate nonproliferative diabetic retinopathy without macular edema, bilateral Status: Chronic (3) Unilateral visual loss: Code(s): H54.60 - Unqualified visual loss, one eye, unspecified Status: Chronic Discharge Plan Discharge Patient Disposition: Home Discharge Instructions: 1. May shower the day after surgery over incisions. 2. Call office for: -Wound increasingly painful or bleeding -Vomiting -Fever of greater than 101 degrees 3. Expect some blood on dressing and old blood on skin. 4. If no bowel movement for three days, take 1 oz. (30 ml) Milk of Magnesia, if no results, take Fleets enema. 5. No heavy lifting > 15-20 pounds for 2 weeks. 6. No driving for 3 days or while taking narcotic pain medications. 7. Up walking 10-30 minutes three times per day. 8. Resume previous home medications. 9. Follow-up 10-14 days in office for wound check or as previously scheduled. 10. Oral pain medications prescription to be sent home with patient. 11. NUTRITION: Start out by drinking fluids and increase your diet as tolerated. If you experience nausea, try dry toast, crackers, and 7-UP. If nausea or vomiting persists, contact your surgeon?s office. Patient Language: Occitan Stand Alone Forms: General Discharge Instructions Follow-up/Referrals: Ziggy Headley MD [Physician, General Surgery] - 3 Weeks Discharge Medications: New oxycodone-acetaminophen [Percocet] 5-325 mg tablet 0.5 - 1 tablet PO Q4H PRN (Reason: pain) Qty: 14 0RF ketorolac 10 mg tablet 10 mg PO Q6H 4 Days Qty: 16 0RF Continued Jardiance 25 mg tablet 25 mg PO DAILY Qty: 90 1RF rosuvastatin 10 mg tablet 10 mg PO DAILY Qty: 90 1RF Mounjaro 15 mg/0.5 mL pen injector 15 mg subcut WEEKLY Qty: 2 3RF Patient Comments: on for diabetes
[2024-12-14] VITALS (9 sets, daily range): BP systolic 116–129; BP diastolic 67–83; PULSE 88–100; RESP 8–16; TEMP 36.2–36.5; O2SAT 92–98
--- OUTSIDE RECORDS SUMMARY | 2024-12-14 00:14 | XMS_ITS | Clinical Summary ---
Author Organization [facility] Address [address] [place] [address] Care Team Providers Care Adjunct Instructor Chemistry Name Role Phone Rasheed Campbell MD Primary Care Provider [phone] Allergies No known active allergies Medications metFORMIN (GLUCOPHAGE) 1,000 mg tablet Take 1,000 mg by mouth 2 (two) times a day 1 Active glimepiride (AMARYL) 1 mg tablet TAKE 1 TABLET BY MOUTH EVERY MORNING WITH BREAKFAST 1 Active Jardiance 10 mg tablet Take 10 mg by mouth daily 1 Active rosuvastatin (CRESTOR) 10 mg tablet Take 10 mg by mouth daily 1 Active Active Problems Problem Noted Date Diagnosed Date Ischemic optic neuropathy of left eye 12/27/2020 Medical History Medical History Date Comments Diabetes mellitus Hyperlipidemia Hypertension Family History Medical History Relation Name Comments Breast cancer Mother Macular degeneration Mother's Sister Relation Name Status Comments Mother Mother's Sister Social History Tobacco Use Types Packs/Day Years Used Date Smoking Tobacco: Never Comments:Rare alcohol use Personal Safety Answer Date Recorded Getting School Help Needed Not on file 04/23 Sex and Gender Information Value Date Recorded Sex Assigned at Not on file Legal Sex Male 2:41 PM CDT Gender Identity Not on file Sexual Orientation Not on file Plan of Treatment Not on file Insurance [employer] CHO[employer] [place]PO [place] Care Teams Adjunct Instructor Chemistry Relationship Specialty Start Date End Date Rasheed Campbell MD [address] [place] [id number] PCP - General Family Medicine 11/06/20
--- NOTE | 2024-12-14 08:17 | WPDHPUPDATE1 ---
History and Physical Update Update Date/Time: 12/14/24 08:17 History and Physical has been reviewed, including an updated exam of the patient. There are NO changes in the patient's condition. Risks, benefits, and alternatives have been discussed and questions answered. Patient agrees to proceed with procedure.
[2024-12-14] MEDS: LACTATED RINGERS 1,000 ML 30 ML IV CONT ×2 (10:00→12:58)
[2024-12-14] MEDS: ACETAMINOPHEN 500 MG TABLET 1000 MG PO (10:00)
--- NOTE | 2024-12-14 10:32 | W.PM.PROC2 ---
Procedure Note - Detailed Date of Procedure 12/14/24 Pre-op Diagnosis umbilical hernia 2.5cm defect Post-op Diagnosis Same Procedure Performed Robotic laparoscopic repair umbilical hernia with 2.5 cm defect with mesh Surgeon Ziggy Headley MD Nailhead Operator Rasheed Montes D.O., Rowena FRIEDMAN Anesthesia General and Local Indications Patient has had an umbilical hernia for at least 10 years. It has gotten larger over time and has dusky skin over the bulge. It still is reducible. He is taken to surgery now for robotic laparoscopic repair with mesh Findings Umbilical hernia, 2.5 cm defect, no bowel involvement Description of Procedure Patient was taken to surgery and induced into general anesthesia. Bed was flexed in the center and over roll was placed under his left flank for some slight elevation. He was then prepped and draped. Trocars were placed in the usual fashion starting with a 5 mm applied Medical optical trocar in the left subcostal position. With adequate insufflation and intraperitoneal location, we then placed the 2 robotic trocars in the left flank and then switched the 5 mm port to another 8 mm robotic port. The robotic arms were then brought into the field. The camera was docked and targeted. The instrument ports were docked and the instruments positioned appropriately. The surgeon then went to the robotic console. The hernia was easily seen. There was fatty tissue in some omentum in the herniated contents. This was carefully reduced taking care not to injure the overlying skin. Once this was completed, some of the midline preperitoneal fat above and below the hernia defect was removed so that mesh could lie in direct apposition to the abdominal wall. I then used 0 Stratafix and closed the hernia defect in longitudinal orientation. A 15 x [address] hernia mesh was then rolled and placed in the abdomen. The Stratafix needle was placed through the center of the mesh and the mesh was then gradually moved up so that it was flush against the suture repair. I then used the Stratafix to secure the left side of the mesh so that I could proceed with suturing the mesh to the abdominal wall more easily. Four different 2 0 V lock sutures were then used and, starting on the right lateral aspect, running suture was used that passed around the entire circumference of the Stratafix. Once this suturing had been completed, I used the residual V lock and the Stratafix and sutured midline portion of the mesh to the anterior abdominal wall with running suture. All looked good. There was no bleeding or other issues. We then removed the suture needles. We removed the instruments and undocked the robot. CO2 was evacuated from the abdominal cavity. Trocar sites were closed at the skin level with 4-0 Monocryl suture. Each wound was dressed with Exofin surgical adhesive. Patient was then awakened and taken to recovery in good condition. Sponge and needle counts were correct x2. Implants 15 x [address] hernia mesh Estimated Blood Loss -5 Drains No Packing No Pathology None sent Complications None Condition Stable Disposition PACU [facility] Billing Surgery - Charge Forward: Surgery Billing (Robotic laparoscopic repair umbilical hernia with 2.5 cm defect with mesh)
--- NOTE | 2024-12-14 10:38 | WPDANESEPPF ---
Anes - Initial Pre Proc Eval Procedure: Operation Date: 12/14/24 11:00 Proposed Procedures p Robotic Repair Umbilical Hernia with Mesh - Ziggy Headley MD Date/Time: 12/14/24 10:38 Surgeon: Ziggy Headley MD Pre Op Diagnosis: umbilical hernia 2.5cm Patient Data Age: 53 Gender: M Height: 1.88 m Weight: 102.2 kg Allergies Allergy/AdvReac Type Severity Reaction Status Date / Time No Known Allergies Allergy Verified 12/05/24 14:16 Home Medications ?Medication ?Instructions ?Recorded ?Confirmed ?Type empagliflozin 25 mg tablet 25 mg PO DAILY #90 tabs 08/02/24 12/05/24 Rx (Jardiance) rosuvastatin 10 mg tablet 10 mg PO DAILY #90 tabs 10/26/24 12/05/24 Rx Mounjaro 15 mg/0.5 mL subcutaneous 15 mg (0.5 mL) subcut WEEKLY #2 mL 11/11/24 12/05/24 Rx pen injector (tirzepatide) Laboratory Tests 12/14/24 09:51 POC Capillary Glucose 170 H mg/dl (65-105) Patient hx anesthesia problems: none Family hx anesthesia problems: none Results Review: All pre-operative results and documents have been reviewed as part of the pre-operative evaluation. 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, bilateral Hyperlipidemia, unspecified Papilledema Family History Family History Mother Breast cancer Father Skin cancer Social History Social History Smoking status: Never smoker Second hand tobacco smoke exposure: No Alcohol intake: unknown Substance use: never Substance use type: does not use Do You Feel Safe in your Home?: Yes Lack of Transportation: No Lack of Food: Never True Current Housing: I Have Housing Concerned About Future Housing: No Difficulty Paying Gas/Electric Bills: No Difficulty Paying for Meds: No Currently Unemployed: No Education: High School Diploma/GED Difficulty w/ Childcare or Family Care: No Living arrangements: alone Occupation/Education: occupation Gender identity (if verbalized by the patient): Male Sexual Orientation (if Verbalized by the Patient): Straight or Heterosexual Spiritual care concerns: No Anes - Eval Final PreProcedure Day of Procedure 12/14/24 10:38 Patient weight: overweight Heart: regular rate and rhythm Lungs: clear to auscultation Airway: Mallampati scale class II Neurological: alert and oriented Last oral intake: >/= 8 hours ASA classification: III Emergent: no Anesthetic plan: proceed Anesthesia type and monitoring: general ETT and standard monitoring Results Review: All pre-operative results and documents have been reviewed as part of the pre-operative evaluation. Informed Consent: The patient's anesthetic plan and its attendant risks and benefits were discussed with the patient/family/POA. Questions were solicited and answers provided to the satisfaction of the patient/family/POA.
[2024-12-14] MEDS: ceFAZolin 2 GM in SODIUM CHLORIDE 0.9% IV 50 ML 100 ML IVPB (10:44)
[2024-12-14] MEDS: BUPIVACAINE/EPINEPHRINE 0.5% 50 ML VIAL 30 ML INFILTRATE (11:28)
[2024-12-14] MEDS: oxyCODONE HCL (*CRX) 5 MG TAB IR PO (14:55)
== END 2024-12-14 15:05 | disposition home or self-care (01) ==
PROVIDERS: PCP Family Medicine; Visit Provider Surgery
PROC: (CPT 49591; principal; 2024-12-14 11:00)
DX: K42.9 Umbilical hernia without obstruction or gangrene (principal); E11.3393 Type 2 diabetes mellitus with moderate nonproliferative diabetic retinopathy without macular edema, bilateral
CPT/HCPCS: 49591; S2900; 82948; J0690; A9270; C1781; J1100; J1171; J2003; J2250; J2405; J2704; J3010; J7120